=== PATIENT | male | born 1950 | race Caucasian/White ===

== ENCOUNTER → 2017-09-11 10:11 | Outpatient (CLI) | payer OTHER, SELFPAY ==
[2017-09-11 11:16] LABS: BUN Creatinine Ratio 22.9 (6-22); Blood Urea Nitrogen 16 mg/dL (9-20); Calcium 9.7 mg/dL (8.4-10.2); Carbon Dioxide 31 mmol/L (22-32); Chloride 102 mmol/L (98-107); Estimated Glomerular Filt Rate > 60.0 mL/min (>60); Glucose 104 mg/dL (80-110); HEMOLYSIS < 15 (0-50); Potassium 4.9 mmol/L (3.4-5.1); Sodium 142 mmol/L (137-145)
== END ==
PROVIDERS: Visit Provider Specialist
DX: R31.9 Hematuria, unspecified (principal)
CPT/HCPCS: 36415; 80048

== ENCOUNTER → 2017-09-14 09:32 | Outpatient (CLI) | payer OTHER, SELFPAY ==
--- NOTE | 2017-09-14 | DI.CT.S_ITS ---
PROCEDURE: CT ABDOMEN PELVIS WO/W CON INDICATIONS: Hematuria TECHNIQUE: Optional 5 mm thick noncontrast images acquired from the diaphragm to the symphysis pubis. After the administration of intravenous contrast, 5 mm thick images acquired from the diaphragm to the symphysis pubis after a 10-minute delay. 2 mm thick coronal and sagittal reformats were then performed of the kidneys and ureters. For radiation dose reduction, the following was used: automated exposure control, adjustment of mA and/or kV according to patient size. COMPARISON: [facility] [place] , CT, ABD/PELVIS W&WO CON (PN), 02/28/2010, 11:35. FINDINGS: Image quality: Excellent. Lung bases: Lung bases are clear except for pleural thickening along the inferior right major fissure.. Heart size is normal. Urinary system: Both kidneys are normal in size, without hydronephrosis or nephrolithiasis on pre-contrast images. Mild perinephric fat stranding. There is normal bilateral renal enhancement. Renal calyces appear normal in morphology when filled with contrast. A 2.5 cm left peripelvic cyst is reidentified. Opacified portions of both ureters demonstrate normal caliber. Bladder wall appears irregular over the left posterolateral dome on axial series 3/image 183, suggestive on sagittal series 5/image 42. No calcified bladder stones. Other solid organs: Liver is normal in size and enhancement. Gallbladder appears normal. Biliary system is non dilated. Pancreas enhances normally. Spleen is normal in size and enhancement. Small splenule. No adrenal nodules. Peritoneum and bowel: Bowel loops demonstrate normal wall thickness and caliber. Normal appendix. Sigmoid diverticulosis without diverticulitis. No free fluid or air. Nodes and vessels: No retroperitoneal or mesenteric adenopathy by size criteria. Aorta and inferior vena cava are normal in size. Abdominal wall: No ventral hernias. Pelvis: No pathologic free pelvic fluid. Fat filled inguinal hernias, no adenopathy. Prostate is enlarged measuring 4.7 x 5.7 cm. Bones: No suspicious bony lesions. No vertebral body compression fractures. IMPRESSION: 1. No nephrolithiasis or hydronephrosis. Left peripelvic cyst unchanged. 2. There is suggestion of focal urinary bladder wall irregularity over the left dome. This may be artifactual secondary to incomplete distention of the bladder, benign secondary to thickening and cellule formation from outlet obstruction related to the enlarged prostate, but could represent early bladder carcinoma. Evaluation by cystoscopy suggested. 3. Prostate enlargement appears stable in size and likely represents benign hypertrophy but prostate cancer cannot be excluded radiographically. 4. Bilateral fat filled inguinal hernias left larger than right. 5. Sigmoid diverticulosis without diverticulitis. Dictated by: Cody Gauthier M.D. on 09/14/2017 at 12:54 Approved by: Cody Gauthier M.D. on 09/14/2017 at 13:23
== END ==
PROVIDERS: Visit Provider Specialist
DX: R31.9 Hematuria, unspecified (principal); N32.9 Bladder disorder, unspecified; N40.0 Benign prostatic hyperplasia without lower urinary tract symptoms; K40.20 Bilateral inguinal hernia, without obstruction or gangrene, not specified as recurrent; K57.90 Diverticulosis of intestine, part unspecified, without perforation or abscess without bleeding
CPT/HCPCS: 74178; Q9967

== ENCOUNTER 2020-06-06 20:14 | Emergency (ER) | payer MEDICARE, SELFPAY ==
[2020-06-06 20:25] VITALS: BP 129/61; PULSE 52; RESP 22; TEMP 36.6; O2SAT 95
--- NOTE | 2020-06-06 20:30 | DI.RAD.S_ITS ---
PROCEDURE: XR CHEST 1V INDICATIONS: chest pain TECHNIQUE: One view of the chest was acquired. COMPARISON: None. FINDINGS: Surgical changes and devices: None. Lungs and pleura: Lungs are clear. No pleural effusions or pneumothorax. Mediastinum: Mediastinal contours appear normal. Heart size is normal. Bones and chest wall: No suspicious bony lesions. Overlying soft tissues appear unremarkable. IMPRESSION: No evidence acute pulmonary process. Dictated by: Ted Padron M.D. on 06/06/2020 at 21:56 Approved by: Ted Padron M.D. on 06/06/2020 at 21:56
[2020-06-06 21:04] LABS: Add Manual Diff / Slide Review NO; Basophils Absolute Auto 100 /uL (0-100); Basophils Percent Auto 0.8 % (0-2); Eosinophils Absolute Auto 300 /uL (0-450); Hematocrit 45.7 % (41-53); Hemoglobin 15.4 g/dL (13.5-17.5); Lymphocytes Absolute Auto 1500 /uL (1100-4500); Lymphocytes Percent Auto 17.1 % (25-40); Mean Corpuscular HGB Conc 33.7 % (30-36); Mean Corpuscular Hemoglobin 28.9 PG (26-34); Mean Corpuscular Volume 85.9 fL (80-100); Monocytes Absolute Auto 800 /uL (0-900); Monocytes Percent Auto 8.4 % (3-14); Neutrophils Absolute Auto 6400 /uL (1500-7000); Neutrophils Percent Auto 70.7 % (50-75); Platelet Count 247 X10^3/uL (150-400); Prothrombin Time 11.4 SECONDS (10.1-12.7); Red Blood Cell Count 5.32 X10^6/uL (4.5-5.9); Red Cell Distribution Width 13.4 % (11.6-14.8)
[2020-06-06 21:06] LABS: PTT Partial Thromboplastin Tim 35 SECONDS (26.4-36.2)
[2020-06-06 21:07] LABS: Alanine Aminotransferase 20 IU/L (<50); Albumin 4.3 g/dL (3.5-5.0); Albumin Globulin Ratio 1.8 (1.0-2.8); Alkaline Phosphatase 74 U/L (38-126); Aspartate Aminotransferase 22 IU/L (17-59); BUN Creatinine Ratio 28.4 (6-22); Bilirubin Total 0.4 mg/dL (0.2-1.3); Blood Urea Nitrogen 25 mg/dL (9-20); Calcium 9.5 mg/dL (8.4-10.2); Carbon Dioxide 33 mmol/L (22-32); Chloride 103 mmol/L (98-107); Creatine Kinase 59 U/L (55-170); Estimated Glomerular Filt Rate > 60.0 mL/min (>60); Globulin 2.4 g/dL (1.7-4.1); Glucose 137 mg/dL (80-110); HEMOLYSIS 19 (0-50); Lipase 71 U/L (23-300); Potassium 4.3 mmol/L (3.4-5.1); Sodium 141 mmol/L (137-145); Total Protein 6.7 g/dL (6.3-8.2)
[2020-06-06 21:18] LABS: Troponin I < 0.012 ng/mL (0.01-0.034)
--- NOTE | 2020-06-06 22:50 | ED_ITS ---
HPI - Arrhythmia/Palpitations General Chief Complaint: Arrhythmia/Palpitations Stated Complaint: LIGHTHEADED, LOW BLOOD PRESSURE Time Seen by Provider: 06/06/20 20:18 Source: patient Mode of arrival: Ambulatory Limitations: no limitations History of Present Illness HPI narrative: 70-year-old male nonsmoker with history of hypertension and hyperlipidemia presents with significant other and a chief complaint of some lightheadedness earlier today and noted blood pressure that he reports was quite low. He had a recent blood pressure medication change at the request of his primary care provider earlier today. He is currently asymptomatic. He states that he had become lightheaded earlier today and became increasingly lightheaded when standing and noticed improvement when sitting. He denies any chest pain, chest pressure, shortness of breath, palpitations. He states that he has been active recently and denies the provocation of any symptoms. He denies nausea, vomiting or diarrhea. He has had no fever chills. Onset (ago): hour(s) Duration: now resolved Severity: mild Associated symptoms: near-syncope Review of Systems Constitutional Constitutional: Denies chills, Denies fatigue, Denies fever(s), Denies frequent falls, Denies lethargy and Denies weakness Eyes Eyes: Denies change in vision, Denies eye discharge, Denies irritation and Venkatesh es loss of vision ENT Ears, Nose, Mouth, and Throat: Denies change in voice, Denies dizziness, Denies neck pain, Denies sore throat and Denies throat swelling Cardiovascular Cardiovascular: Denies chest pain, Denies irregular heart rhythm, Reports lightheadedness, Denies palpitations, Denies dyspnea, Denies dyspnea on exertion and Denies orthopnea Respiratory Respiratory: Denies cough, Denies dyspnea, Denies dyspnea on exertion and Denies wheezing Gastrointestinal Gastrointestinal: Denies abdominal pain, Denies change in bowel habits, Denies diarrhea, Denies nausea and Denies vomiting Musculoskeletal Musculoskeletal: Denies neck pain and Denies numbness Integumentary/Breasts Skin/Breast: Denies pruritus, Denies erythema, Denies rash and Denies wounds Neurologic Neurologic: Denies behavioral changes, Denies confusion, Denies dizziness, Denies frequent falls, Denies loss of vision, Denies numbness and Denies weakness Psychiatric Psychiatric: Denies anxiety, Denies behavioral changes, Denies confusion, Denies depression, Denies homicidal ideation and Denies suicidal ideation Endocrine Endocrine: Denies fatigue, Denies flushing and Denies palpitations Hematologic/Lymphatic Hematologic/Lymphatic: Denies easy bruising Allergic/Immunologic Allergic/Immunologic: Denies urticaria, Denies throat swelling and Denies wheezing Patient History Social History Smoking Status: Never smoker Smoking Status: Never smoker alcohol intake frequency: other Exam Narrative Exam Narrative: GENERAL: [70] year old patient appears stated age. Well- nourished, well-developed patient, in mild distress. HEAD: Atraumatic. Normocephalic. EYES: Pupils equal round and reactive. Extraocular motions intact. No scleral icterus. No injection or drainage. ENT: Nose without bleeding, purulent drainage. Throat without erythema, tonsillar hypertrophy or exudate. Airway patent. NECK: Trachea midline. Non tender CARDIOVASCULAR: Regular rate and rhythm without murmurs, gallops, or rubs. RESPIRATORY: Clear to auscultation. Breath sounds equal bilaterally. No wheezes, rales, or rhonchi. GASTROINTESTINAL: Abdomen soft, non-tender, nondistended. EXTREMITIES: No edema or joint tenderness. BACK: Nontender without deformity or crepitance. No flank tenderness. NEURO: AOx3. SKIN: No rash or erythema of visible areas Initial Vital Signs Initial Vital Signs: Vital Signs Temperature 97.8 F 06/06/20 20:25 Pulse Rate 52 L 06/06/20 20:25 Respiratory Rate 22 06/06/20 20:25 Blood Pressure 129/61 06/06/20 20:25 Pulse Oximetry 95 06/06/20 20:25 Course Orders Ordered: ED Orders 06/06/20 20:30 XR chest 1V Stat EKG-12 Lead Stat 06/06/20 20:35 Complete Blood Count AUTO DIFF Stat Comprehensive Metabolic Panel Stat Lipase Stat Partial Thromboplastin Time Stat Prothrombin Time INR Stat Troponin & CK Cardiac Panel Stat 06/06/20 23:02 EKG-12 Lead Stat 06/06/20 23:05 Troponin I Stat Vital Signs Vital signs: Vital Signs - 8 hr 06/06/20 20:25 06/07/20 00:48 Temperature 97.8 F Pulse Rate 52 L Pulse Rate [Orthostatic Lying] 49 L Pulse Rate [Orthostatic Sitting] 46 L Pulse Rate [Orthostatic Standing] 46 L Respiratory Rate 22 Blood Pressure 129/61 Blood Pressure [Orthostatic Lying] 138/69 Blood Pressure [Orthostatic Sitting] 136/71 Blood Pressure [Orthostatic Standing] 120/63 Pulse Oximetry 95 MDM - Arrhythmia/Palpitations Lab Data Result diagrams: 06/06/20 20:35 06/06/20 20:35 Labs: Lab Results 06/06/20 06/06/20 06/06/20 Range/Units 20:35 20:35 20:35 WBC 9.0 (4.5-11.0) X10^3/uL RBC 5.32 (4.5-5.9) X10^6/uL Hgb 15.4 (13.5-17.5) g/dL Hct 45.7 (41-53) % MCV 85.9 (80-100) fL MCH 28.9 (26-34) PG MCHC 33.7 (30-36) % RDW 13.4 (11.6-14.8) % Plt Count 247 (150-400) X10^3/uL Neut % (Auto) 70.7 (50-75) % Lymph % (Auto) 17.1 L (25-40) % [place] % (Auto) 8.4 (3-14) % Eos % (Auto) 3.0 (2-4) % Baso % (Auto) 0.8 (0-2) % Neut # (Auto) 6400 (4944-3818) /uL Lymph # (Auto) 1500 (6583-4944) /uL [place] # (Auto) 800 (0-900) /uL Eos # (Auto) 300 (0-450) /uL Baso # (Auto) 100 (0-100) /uL PT 11.4 (10.1-12.7) SECONDS INR 1.0 (0.9-1.3) APTT 35 (26.4-36.2) SECONDS Sodium 141 (137-145) mmol/L Potassium 4.3 (3.4-5.1) mmol/L Chloride 103 (98-107) mmol/L Carbon Dioxide 33 H (22-32) mmol/L BUN 25 H (9-20) mg/dL Creatinine 0.88 (0.66-1.25) mg/dL Estimated GFR > 60.0 (>60) mL/min BUN/Creatinine Ratio 28.4 H (6-22) Glucose 137 H (80-110) mg/dL Calcium 9.5 (8.4-10.2) mg/dL Total Bilirubin 0.4 (0.2-1.3) mg/dL AST 22 (17-59) IU/L ALT 20 (<50) IU/L Alkaline Phosphatase 74 (38-126) U/L Total Creatine Kinase 59 (55-170) U/L CK-MB (CK-2) TNP CK-MB (CK-2) Rel Index TNP Troponin I < 0.012 (0.01-0.034) ng/mL Total Protein 6.7 (6.3-8.2) g/dL Albumin 4.3 (3.5-5.0) g/dL Globulin 2.4 (1.7-4.1) g/dL Albumin/Globulin Ratio 1.8 (1.0-2.8) Lipase 71 (23-300) U/L 06/06/20 Range/Units 23:05 WBC (4.5-11.0) X10^3/uL RBC (4.5-5.9) X10^6/uL Hgb (13.5-17.5) g/dL Hct (41-53) % MCV (80-100) fL MCH (26-34) PG MCHC (30-36) % RDW (11.6-14.8) % Plt Count (150-400) X10^3/uL Neut % (Auto) (50-75) % Lymph % (Auto) (25-40) % [place] % (Auto) (3-14) % Eos % (Auto) (2-4) % Baso % (Auto) (0-2) % Neut # (Auto) (2811-4587) /uL Lymph # (Auto) (9368-9023) /uL [place] # (Auto) (0-900) /uL Eos # (Auto) (0-450) /uL Baso # (Auto) (0-100) /uL PT (10.1-12.7) SECONDS INR (0.9-1.3) APTT (26.4-36.2) SECONDS Sodium (137-145) mmol/L Potassium (3.4-5.1) mmol/L Chloride (98-107) mmol/L Carbon Dioxide (22-32) mmol/L BUN (9-20) mg/dL Creatinine (0.66-1.25) mg/dL Estimated GFR (>60) mL/min BUN/Creatinine Ratio (6-22) Glucose (80-110) mg/dL Calcium (8.4-10.2) mg/dL Total Bilirubin (0.2-1.3) mg/dL AST (17-59) IU/L ALT (<50) IU/L Alkaline Phosphatase (38-126) U/L Total Creatine Kinase (55-170) U/L CK-MB (CK-2) CK-MB (CK-2) Rel Index Troponin I < 0.012 (0.01-0.034) ng/mL Total Protein (6.3-8.2) g/dL Albumin (3.5-5.0) g/dL Globulin (1.7-4.1) g/dL Albumin/Globulin Ratio (1.0-2.8) Lipase (23-300) U/L Imaging Data Chest x-ray: Radiologist's Impresson: Doug Dixon Luh M 1950 [address] [id number] ReportSigned Patient: Simeon Dixony DMR#: [id number]: 9Acct:[id number]/Sex: 70 / MDate of Service: 06/06/20Loc: EDAccession Number: [id number] Procedure: XR chest 1V Ordering Provider: Facundo Angel D.O. PROCEDURE: XR CHEST 1V INDICATIONS: chest pain TECHNIQUE: One view of the chest was acquired. COMPARISON: None. FINDINGS: Surgical changes and devices: None. Lungs and pleura: Lungs are clear. No pleural effusions or pneumothorax. Mediastinum: Mediastinal contours appear normal. Heart size is normal. Bones and chest wall: No suspicious bony lesions. Overlying soft tissues appear unremarkable. IMPRESSION: No evidence acute pulmonary process. Dictated by: Ted Padron M.D. on 06/06/2020 at 21:56 Approved by: Ted Padron M.D. on 06/06/2020 at 21:56 [facility] Narrative Medical decision making narrative: Patient feeling quite well, orthostatics are unremarkable and he ambulates to the department with no difficulty. Blood pressure is stable and he is asymptomatic, centrally for the duration of his visit. He has negative troponins x2, nonischemic EKG and very reassuring exam and labs. It is hard to ignore the temporal relationship between this significant drop in blood pressure at home and the change in his blood pressure medication. I did encourage him to return to his previous medication regimen until he is able to get in with his doctor, for the plan. Return precautions have been given, questions answered to his apparent satisfaction Discharge Plan Departure Patient Disposition: Home Clinical Impression: Acute hypotension, Light-headedness Instructions: DI for Hypotension Activity Restrictions/Additional Instructions: *You have been diagnosed with [dizziness with episodes of low blood pressure, likely related to your medications.] *What to do: *Take medications as directed: Please return to your older blood pressure medication regimen until you follow up with your doctor *Follow up with your primary care provider in 2-3 days, call for an appointment. Let them know you were seen in the Emergency Department and that we ask that you be seen in follow up *Return to ER if you should have any new, worsening or concerning symptoms
[2020-06-06 23:36] LABS: Troponin I < 0.012 ng/mL (0.01-0.034)
[2020-06-07 00:48] VITALS: BP 120/63; BP 136/71; BP 138/69; PULSE 46; PULSE 49
== END 2020-06-07 00:51 | disposition home or self-care (01) ==
PROVIDERS: Emergency Provider Emergency Medicine
DX: I95.9 Hypotension, unspecified (principal); R42 Dizziness and giddiness
CPT/HCPCS: 36415; 71045; 80053; 82550; 83690; 84484; 85025; 85610; 85730; 93005; 99283

== ENCOUNTER → 2020-10-22 10:44 | Outpatient (CLI) | payer MEDICARE, SELFPAY ==
[2020-10-22 13:46] LABS: Thyroid Stimulating Hormone 2.99 uIU/mL (0.47-4.68)
== END ==
PROVIDERS: PCP Family Medicine; Referring Provider Internal Medicine Cardiovascular Disease; Visit Provider Internal Medicine Cardiovascular Disease
DX: I10 Essential (primary) hypertension (principal)
CPT/HCPCS: 36415; 83735; 84443

== ENCOUNTER → 2020-11-05 08:53 | Outpatient (CLI) | payer MEDICARE, SELFPAY ==
--- NOTE | 2020-11-05 08:56 | DI.US.S_ITS ---
PROCEDURE: US ABDOMEN LIMITED INDICATIONS: LEFT INGUINAL PAIN, LUMP TECHNIQUE: Real-time focused scanning was performed of the inguinal region, with image documentation. COMPARISON: None. FINDINGS: Two areas of concern were evaluated. Midline supraumbilical region demonstrates no hernia or visible abdominal wall defect. Left inguinal region demonstrates no hernia at rest or with Valsalva maneuver. IMPRESSION: 1. No sonographic evidence of midline or left inguinal hernia. If there is continued concern, CT of the abdomen and pelvis with Valsalva maneuver is recommended. Dictated by: Melanie Ornelas M.D. on 11/05/2020 at 11:18 Approved by: Melanie Ornelas M.D. on 11/05/2020 at 11:19
== END ==
PROVIDERS: PCP Family Medicine; Referring Provider Specialist; Visit Provider Specialist
DX: R10.30 Lower abdominal pain, unspecified (principal); R19.04 Left lower quadrant abdominal swelling, mass and lump
CPT/HCPCS: 76705

== ENCOUNTER → 2020-11-26 08:56 | Outpatient (CLI) | payer MEDICARE, SELFPAY ==
--- NOTE | 2020-11-26 08:58 | DI.CT.S_ITS ---
PROCEDURE: CT PEL WO CON INDICATIONS: benigh prostatic hyperplasia with lower urinary tract symptoms TECHNIQUE: Noncontrast 3 mm axial sections acquired through the bony pelvis, with coronal and sagittal reformatting. COMPARISON: CT, CT ABDOMEN PELVIS WO/W CON, 09/14/2017, 9:49. FINDINGS: Image quality: Excellent. Bones: No fracture or dislocation. No suspicious osseous lesion. Moderate degenerative change in the lower lumbar spine. Soft tissues: Diverticulosis. No diverticulitis. The appendix is not dilated. No free fluid. Mild calcified atherosclerotic plaque. Fat containing left inguinal hernia. Possible fat containing right inguinal hernia. No adenopathy. Prostatomegaly. The prostate measures approximately 6.8 x 4.8 x 4.7 cm, estimated volume of 80 cc. There is median lobe hypertrophy. Urinary bladder is only partially distended. No bladder stones or obvious bladder diverticulum. Bilateral hydroceles. IMPRESSION: 1. Prostatomegaly. 2. No bladder stones. 3. Diverticulosis. Additional incidental findings: Bilateral hydroceles. Suspect fat containing inguinal hernias. Dictated by: Gene Marroquin M.D. on 11/26/2020 at 9:39 Approved by: Gene Marroquin M.D. on 11/26/2020 at 9:46
== END ==
PROVIDERS: PCP Family Medicine; Referring Provider Specialist; Visit Provider Specialist
DX: N40.1 Benign prostatic hyperplasia with lower urinary tract symptoms (principal); N13.8 Other obstructive and reflux uropathy; K57.90 Diverticulosis of intestine, part unspecified, without perforation or abscess without bleeding
CPT/HCPCS: 72192

== ENCOUNTER → 2020-12-21 09:32 | Outpatient (ROUT) | payer MEDICARE, SELFPAY ==
[2020-12-21 09:50] LABS: COVID19 -Nasal RAPID Negative (Negative)
== END ==
PROVIDERS: PCP Family Medicine; Visit Provider Specialist
DX: Z20.822 Contact with and (suspected) exposure to COVID-19 (principal)
CPT/HCPCS: 87635; C9803

== ENCOUNTER 2020-12-24 07:57 | Day surgery (SDC) | payer MEDICARE, SELFPAY ==
[2020-12-21 08:11] VITALS: BMI 28.0
[2020-12-24] VITALS (9 sets, daily range): BP systolic 112–153; BP diastolic 68–81; PULSE 62–84; RESP 9–24; TEMP 36–36.6; O2SAT 90–99; BMI 28.0
[2020-12-24] MEDS: LACTATED RINGERS 1,000 ML 42 ML IV (08:26)
--- NOTE | 2020-12-24 08:46 | PM.PREOP ---
Pre-operative Note Interval Note History & Physical reviewed/Exam performed by Physician: Yes Changes to H&P: No
[2020-12-24] MEDS: CIPROFLOXACIN 400 MG/200 ML PIGGYBACK 200 MG IV (09:00)
--- NOTE | 2020-12-24 09:27 | SUR.OPER ---
Supine on padded OR bed, head on pillow, arms secured on padded arm boards at <90 degrees abduction, legs uncrossed, safety belt at thigh, tape over blanket over lower legs.
[2020-12-24] MEDS: BUPIVACAINE 0.25% (PF) VIAL 30 ML INJ (09:34)
[2020-12-24] MEDS: BUPIVACAINE LIPOSOME 266 MG/20 ML VIAL INJ (09:34)
[2020-12-24] MEDS: EPINEPHrine 1 MG/ML 0.15 MG INJ (09:35)
[2020-12-24] MEDS: ACETAMINOPHEN IV 1,000 MG/100 ML VIAL 400 MG IV (10:23)
--- NOTE | 2020-12-24 10:52 | SUR.PHASEI ---
Patient to PACU via stretcher with Dr Rodriguez and Amara AKHTAR after general anesthesia. Pt breathing unassisted on room air.
--- NOTE | 2020-12-24 10:55 | P.OP_ITS ---
Operative Date/Time/Diagnoses Date of procedure: 12/24/20 Time of procedure: 10:55 Pre-op diagnosis: 1. Left inguinal hernia Post-op diagnosis: same Procedure & Clinicians Procedure: 1. Left inguinal hernia repair with mesh. Same procedure as scheduled: Yes Indications: 1. Symptomatic left inguinal hernia. Surgeon: Zuri Madison Click Yes if Unassisted: Yes Anesthesia Type: General and Local (1.33% Exparel) Operative Notes Findings: 1. 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 2. Small hernia sac identified at internal ring. 3. Separation of abdominal wall at internal ring. Closure Type: primary Specimen(s): none sent Prosthetic devices, grafts, tissues, transplants, or devices: 3 in x 6 in polypropylene Bard mesh pre Estimated Blood Loss (mL): 5 Blood products transfused: none Tourniquet time (min): 0 Procedure in detail: The patient was positioned supine administered general anesthesia. The lower abdomen, genitalia, and groin were then prepped and draped in sterile fashion. A solution of 0.5% Marcaine with epinephrine then used to infiltrate the skin and subcutaneous tissue of the left inguinal canal. An oblique incision was then made at this site. Division of the subcutaneous fat and Nicole's fascia was then conducted using blunt cautery dissection. The rectus sheath was then divided parallel to its fibers over the canal. The cord associated structures were then carefully mobilized from within the canal and reflected superiorly into the surface the incision. Inspection revealed a a large and length the spermatic cord lipoma. This was from the spermatic cord structures using meticulous blunt and cautery technique. The structure was then reflected laterally and superiorly alternating with medially and inferiorly at the internal ring to identify the anatomic boundaries. Once fully mobilized it was simply repositioned within the preperitoneal space of the abdominal/pelvic cavity. The small hernia sac receded after mobilization of the structures as described above. There was no bowel located within the sac. A repair of the internal ring was then conducted using interrupted [id number] 2-0 PDS. A 3 x 6 in polypropylene segment of mesh was then selected. It was then tailored and shape to position over the transverse a was an oblique layers. Lateral crossing tails were then created. An adequate aperture was created by excision and also stellate incisions and the mesh at the internal ring. The mesh was secured in place several places including the pubic tubercle with 3-0 Prolene suture. The cord was then repositioned in the left inguinal canal. Rectus fascia was then closed using a running 2-0 PDS. Nicole's fascia was reapproximated using the same suture. Each layer was infiltrated with Exparel. The skin was then reapproximated using a running subcuticular 4-0 Monocryl. Telfa gauze was then tailored to cover the skin incision. Over this a transparent Tegaderm dressing was applied for by occlusion. The patient was then awakened, transferred to [facility], and transferred to recovery in stable condition. Complications: none Post-operative Condition: stable Disposition: PACU Plan for aftercare: Discharge home
--- NOTE | 2020-12-24 11:09 | SUR.PHASEI ---
Patient reports some numbness to left foot. Informed Dr Madison who is at bedside, foot with 5/5 dorsal and plantar flexion.
== END 2020-12-24 11:43 | disposition home or self-care (01) ==
PROVIDERS: PCP Family Medicine; Referring Provider Specialist; Visit Provider Specialist
PROC: (CPT 49505; principal; 2020-12-24 09:15)
DX: K40.90 Unilateral inguinal hernia, without obstruction or gangrene, not specified as recurrent (principal); I10 Essential (primary) hypertension; D17.6 Benign lipomatous neoplasm of spermatic cord
CPT/HCPCS: 49505; 82962; C1781; C9290; J0131; J0171; J0744; J1100; J2405; J2704; J3010

== ENCOUNTER → 2021-04-24 10:18 | Outpatient (CLI) | payer MEDICARE, SELFPAY ==
[2021-04-24 12:16] LABS: Cholesterol 140 mg/dL (140-199); HDL Cholesterol 41 mg/dL (40-60); LDL Cholesterol Calculated 86 mg/dL (<100); Triglycerides 67 mg/dL (35-150)
== END ==
PROVIDERS: PCP Family Medicine; Referring Provider Internal Medicine Cardiovascular Disease; Visit Provider Internal Medicine Cardiovascular Disease
DX: E78.5 Hyperlipidemia, unspecified (principal)
CPT/HCPCS: 36415; 80061

== ENCOUNTER → 2021-07-15 11:50 | Outpatient (CLI) | payer MEDICARE, SELFPAY ==
[2021-07-15 12:56] LABS: Cholesterol 133 mg/dL (140-199); HDL Cholesterol 44 mg/dL (40-60); LDL Cholesterol Calculated 76 mg/dL (<100); Triglycerides 65 mg/dL (35-150)
== END ==
PROVIDERS: PCP Family Medicine; Referring Provider Internal Medicine Cardiovascular Disease; Visit Provider Internal Medicine Cardiovascular Disease
DX: E78.5 Hyperlipidemia, unspecified (principal)
CPT/HCPCS: 36415; 80061

== ENCOUNTER → 2021-11-19 13:59 | Outpatient (CLI) | payer MEDICARE, SELFPAY ==
[2021-11-19 16:53] LABS: Alanine Aminotransferase 20 IU/L (<50); Albumin 4.4 g/dL (3.5-5.0); Albumin Globulin Ratio 1.6 (1.0-2.8); Alkaline Phosphatase 67 U/L (38-126); Aspartate Aminotransferase 20 IU/L (17-59); BUN Creatinine Ratio 25.6 (6-22); Bilirubin Total 0.9 mg/dL (0.2-1.3); Blood Urea Nitrogen 20 mg/dL (9-20); Calcium 9.3 mg/dL (8.4-10.2); Carbon Dioxide 29 mmol/L (22-32); Chloride 100 mmol/L (98-107); Cholesterol 127 mg/dL (140-199); Estimated Glomerular Filt Rate > 60 mL/min (>60); Globulin 2.7 g/dL (1.7-4.1); Glucose 117 mg/dL (80-110); HDL Cholesterol 38 mg/dL (40-60); HEMOLYSIS < 15 (0-50); LDL Cholesterol Calculated 78 mg/dL (<100); Sodium 141 mmol/L (137-145); Total Protein 7.1 g/dL (6.3-8.2); Triglycerides 57 mg/dL (35-150)
== END ==
PROVIDERS: PCP Family Medicine; Referring Provider Internal Medicine Cardiovascular Disease; Visit Provider Internal Medicine Cardiovascular Disease
DX: E78.5 Hyperlipidemia, unspecified (principal)
CPT/HCPCS: 36415; 80053; 80061

== ENCOUNTER → 2022-01-22 11:29 | Outpatient (CLI) | payer MEDICARE, SELFPAY ==
[2022-01-22 12:37] LABS: Cholesterol 120 mg/dL (140-199); HDL Cholesterol 42 mg/dL (40-60); LDL Cholesterol Calculated 68 mg/dL (<100); Triglycerides 50 mg/dL (35-150)
== END ==
PROVIDERS: PCP Family Medicine; Referring Provider Internal Medicine Cardiovascular Disease; Visit Provider Internal Medicine Cardiovascular Disease
DX: E78.5 Hyperlipidemia, unspecified (principal)
CPT/HCPCS: 36415; 80061

== ENCOUNTER → 2022-02-17 12:12 | Outpatient (CLI) | payer MEDICARE, SELFPAY ==
[2022-02-17 13:56] LABS: Prostate Specific Antigen 4.65 ng/mL (0.10-4.00)
== END ==
PROVIDERS: PCP Family Medicine; Referring Provider Specialist; Visit Provider Specialist
DX: N40.1 Benign prostatic hyperplasia with lower urinary tract symptoms (principal); N13.8 Other obstructive and reflux uropathy
CPT/HCPCS: 36415; 84153

== ENCOUNTER → 2022-03-12 13:40 | Outpatient (CLI) | payer MEDICARE, SELFPAY ==
[2022-03-12 15:47] LABS: Prostate Specific Antigen 4.04 ng/mL (0.10-4.00)
[2022-03-13 14:04] LABS: PSA Free % 27.1 % (.); PSA, Total 4.2 ng/mL (0.0-4.0)
== END ==
PROVIDERS: PCP Family Medicine; Referring Provider Specialist; Visit Provider Specialist
DX: R97.20 Elevated prostate specific antigen [PSA] (principal); N40.1 Benign prostatic hyperplasia with lower urinary tract symptoms; N13.8 Other obstructive and reflux uropathy
CPT/HCPCS: 36415; 84153; 84154

== ENCOUNTER → 2022-10-10 11:57 | Outpatient (CLI) | payer MEDICARE, SELFPAY ==
--- NOTE | 2022-10-10 11:58 | DI.RAD.S_ITS ---
PROCEDURE: XR KUB INDICATIONS: history of urinary calculi TECHNIQUE: One view of the abdomen acquired. COMPARISON: None. FINDINGS: Surgical changes and devices: None. Bowel: Bowel gas pattern is normal. Soft tissues: No suspicious abdominal calcifications. Visualized solid organ contours appear normal in size. Bones: No suspicious bony lesions. IMPRESSION: No gross renal calculi are seen. No bowel obstruction or gross free air. Dictated by: Eugenio Connolly M.D. on 10/10/2022 at 16:02 Approved by: Eugenio Connolly M.D. on 10/10/2022 at 16:03
[2022-10-10 13:53] LABS: Prostate Specific Antigen 4.85 ng/mL (0.10-4.00)
== END ==
PROVIDERS: PCP Family Medicine; Referring Provider Specialist; Visit Provider Specialist
DX: R97.20 Elevated prostate specific antigen [PSA] (principal); Z87.442 Personal history of urinary calculi
CPT/HCPCS: 36415; 74018; 84153

== ENCOUNTER → 2023-02-05 12:19 | Outpatient (CLI) | payer MEDICARE, SELFPAY ==
[2023-02-05 14:26] LABS: Prostate Specific Antigen 4.27 ng/mL (0.10-4.00)
== END ==
PROVIDERS: PCP Family Medicine; Referring Provider Specialist; Visit Provider Specialist
DX: R97.20 Elevated prostate specific antigen [PSA] (principal)
CPT/HCPCS: 36415; 84153

== ENCOUNTER → 2023-02-18 14:28 | Outpatient (CLI) | payer MEDICARE, SELFPAY | PROVIDERS: PCP Family Medicine; Visit Provider Specialist | DX: N40.1 Benign prostatic hyperplasia with lower urinary tract symptoms (principal); N13.8 Other obstructive and reflux uropathy; Z87.442 Personal history of urinary calculi; Z80.42 Family history of malignant neoplasm of prostate | CPT/HCPCS: 51798; 81002; 87077; 87086; 87186; 99214 ==

== ENCOUNTER → 2023-06-16 08:53 | Outpatient (CLI) | payer MEDICARE, SELFPAY ==
[2023-06-16 09:40] LABS: Estimated Glomerular Filt Rate > 60 mL/min (>60)
--- NOTE | 2023-06-16 09:43 | DI.CT.S_ITS ---
PROCEDURE: CT IVP A/P W/WO INDICATIONS: Gross Hematuria BPH TECHNIQUE: Optional 5 mm thick noncontrast images acquired from the diaphragm to the symphysis pubis. After the administration of intravenous contrast, 5 mm thick images acquired from the diaphragm to the symphysis pubis after a 10-minute delay. 2 mm thick coronal and sagittal reformats were then performed of the kidneys and ureters. For radiation dose reduction, the following was used: automated exposure control, adjustment of mA and/or kV according to patient size. COMPARISON: None. FINDINGS: Image quality: Diagnostic. Kidneys and Ureters: Both kidneys are normal in size without hydronephrosis. There are bilateral parapelvic cysts. Linear calcific debris/stones measuring 0.7 x 0.4 cm in the right interpolar region (2/46, 3/34). No perinephric fat stranding. There is normal bilateral renal enhancement. Bilateral subcentimeter cortical hypodensities are too small to characterize, statistically cysts. No complex cystic lesions which require follow-up. Renal calyces appear normal in morphology when filled with contrast. Opacified portions of both ureters demonstrate normal caliber Bladder: Bladder wall thickness is mildly thickened, accounting for underdistention. Calcified bladder stone at the right base of the bladder measuring 0.9 x 0.7 cm with Hounsfield unit 538 (2/81). OTHER: Lower chest: Marked LAD and left circumflex coronary vessel calcifications. Heart size is mildly enlarged. Liver: No solid mass. Subcentimeter scattered hypodensities are too small to characterize. Gallbladder: No radiopaque gallstones or wall thickening. Biliary ducts: No biliary dilation. Pancreas: No ductal dilation. Spleen: Size is within normal limits. Adrenal Glands: No adrenal nodules. Stomach and Bowel no hiatal hernia. Stomach appears grossly normal accounting for under distention. Small and large bowel is normal in caliber, without obstruction. Normal appendix (4/150). Extensive sigmoid and scattered colonic diverticulosis, without diverticulitis. Peritoneum: No abnormal intraperitoneal fluid. No free air. Ventral Wall: No hernia. Abdominal Nodes: No retroperitoneal or mesenteric adenopathy by size criteria. Vessels: Aorta and inferior vena cava are normal in size. Mild calcification of the abdominal aorta, without aneurysm. PELVIS: Pelvic Organs: Moderate to marked prostatomegaly measuring 5.8 x 5.1 cm. Pelvic Nodes: No enlarged lymph nodes. Miscellaneous: No inguinal hernias are seen. Bones: No aggressive osseous abnormality. No acute fracture. Mild to moderate multilevel degenerative changes of the spine. IMPRESSION: 1. Calcified bladder stone at the right base of the bladder measuring 0.9 x 0.7 cm with Hounsfield unit of 538. 2. Linear right lower pole calcific debris/stone measuring 0.7 x 0.4 cm. 3. No hydronephrosis bilaterally. No suspicious filling defect in the collecting system. 4. Moderate to marked prostatomegaly with circumferential bladder wall thickening suggestive of chronic bladder outlet obstruction. 5. Extensive sigmoid and scattered colonic diverticulosis, without diverticulitis. Dictated by: Arcadio Ziegler M.D. on 06/16/2023 at 16:45 Approved by: Arcadio Ziegler M.D. on 06/16/2023 at 16:57
== END ==
LOC: CT 08:53
PROVIDERS: Radiology Diagnostic Radiology; PCP Family Medicine; Referring Provider Specialist; Visit Provider Specialist
DX: N40.1 Benign prostatic hyperplasia with lower urinary tract symptoms (principal); N13.8 Other obstructive and reflux uropathy; R31.0 Gross hematuria; N21.0 Calculus in bladder; N20.0 Calculus of kidney; N28.1 Cyst of kidney, acquired; R97.20 Elevated prostate specific antigen [PSA]; I25.10 Atherosclerotic heart disease of native coronary artery without angina pectoris; I51.7 Cardiomegaly; K57.30 Diverticulosis of large intestine without perforation or abscess without bleeding; I70.0 Atherosclerosis of aorta
CPT/HCPCS: 36415; 74178; 82565; Q9967

== ENCOUNTER 2023-07-13 08:39 | Day surgery (SDC) | payer MEDICARE, SELFPAY ==
[2023-07-13 07:34] VITALS: BMI 25.7
[2023-07-13 09:15] VITALS: BP 146/70; PULSE 51; RESP 16; TEMP 36.2; O2SAT 97; BMI 25.7
--- NOTE | 2023-07-13 09:33 | PM.PREOP ---
Pre-operative Note Interval Note History & Physical reviewed/Exam performed by Physician: Yes Changes to H&P: No
[2023-07-13] MEDS: CEFAZOLIN 2 GM/100 ML PREMIX 100 ML IV (10:15)
--- NOTE | 2023-07-13 10:20 | SUR.OPER ---
Lithotomy on padded OR bed, head on pillow, arms secured on padded arm boards at <90 degrees abduction. Legs secured in padded yellow fins stirrups.
[2023-07-13 11:00] VITALS: BP 140/73; PULSE 75; RESP 13; TEMP 36.1; O2SAT 94
[2023-07-13 11:05] VITALS: BP 140/70; PULSE 69; RESP 13; O2SAT 95
[2023-07-13 11:09] VITALS: BP 142/76; PULSE 67; RESP 11; O2SAT 96
--- NOTE | 2023-07-13 11:09 | P.OP_ITS ---
Operative Date/Time/Diagnoses Date of procedure: 07/13/23 Time of procedure: 10:45 Pre-op diagnosis: 1. Bladder calculus 2. Gross hematuria Post-op diagnosis: same Procedure & Clinicians Procedure: 1. Laser litholapaxy (500 micron). Same procedure as scheduled: Yes Indications: 1. Bladder calculus. 2. Gross hematuria Surgeon: Zuri Madison Anesthesia Type: General Operative Notes Findings: 1. Urethra-normal stricture or lesion. Evidence recent disrupted and healing synchiciae in the distal bulbar segment. 2. External sphincter-coapted with normal overlying urothelium. 3. Prostate 4.55 cm length with moderately obstructing trilobar hyperplasia. Impressive elevation of the median bar. Numerous benign inflammatory mucosal polyps seen bilaterally in the mid portion of the prostatic urethra. 4. Bladder-normal ureteral orifices bilaterally. The bladder neck is elevated and the floor depressed due to enlarged median bar. The stone lying dependently at the bladder base. Closure Type: not applicable Specimen(s): other (Bladder stone fragments) Applied: catheter (20 [place] silicone catheter to gravity drainage.) Estimated Blood Loss (mL): 2 Blood products transfused: none Procedure in detail: The patient was positioned supine was administered general anesthesia. He was then repositioned semi-lithotomy lower abdomen, genitalia, and groin were then prepped and draped in sterile fashion. The 20 [place] continuous-flow laser en doscope was then passed lower urinary tract with the findings as described above. A 500 micron fiber was then requested and all operating room personnel and patient were fitted with laser safety eyewear. The index calculus as described above was then localized and lithotripsy was then commenced. The stone was sequentially fragmented into tiny pieces. There was excellent evidence of stone comminution. Laser treatment was halted. They elect evacuator was then utilized to irrigate all sand, pumice common fragments from within the bladder lumen. This calculus material was then gathered and submitted to be sent for mineral analysis. The bladder was then left partially filled and the laser cystoscope was removed. A 20 [place] silicone catheter was then advanced lower urinary tract with the tip in the bladder. The balloon inflated 10 cc. And was irrigated clear and then placed to gravity drainage. The patient was then repositioned in supine, was awakened, transferred to [facility] recovery in stable condition. Complications: none Post-operative Condition: stable Disposition: PACU Plan for aftercare: Discharge home.
[2023-07-13] MEDS: OXYCODONE IR 5 MG TABLET PO (11:12)
[2023-07-13 11:14] VITALS: BP 145/72; PULSE 64; RESP 13; O2SAT 96
[2023-07-13 11:21] VITALS: BP 144/71; PULSE 61; RESP 15; TEMP 36.3; O2SAT 95
== END 2023-07-13 12:13 | disposition home or self-care (01) ==
PROVIDERS: PCP Family Medicine; Referring Provider Specialist; Visit Provider Specialist
PROC: 0TCB8ZZ Extirpation of Matter from Bladder, Via Natural or Artificial Opening Endoscopic (ICD-10-PCS; CPT 52317; principal; 2023-07-13 10:15)
DX: N21.0 Calculus in bladder (principal); R31.1 Benign essential microscopic hematuria; N40.1 Benign prostatic hyperplasia with lower urinary tract symptoms; N13.8 Other obstructive and reflux uropathy; R97.20 Elevated prostate specific antigen [PSA]; Z80.42 Family history of malignant neoplasm of prostate
CPT/HCPCS: 52317; 82365; J0330; J0690; J1100; J2405; J2704; J3010

== ENCOUNTER → 2023-08-04 09:54 | Outpatient (CLI) | payer MEDICARE, SELFPAY ==
--- NOTE | 2023-08-04 09:55 | DI.RAD.S_ITS ---
PROCEDURE: XR KUB INDICATIONS: Calculus in bladder TECHNIQUE: One view of the abdomen acquired. COMPARISON: [facility], CT, CT IVP A/P W/WO, 06/16/2023, 9:44. [facility], CR, XR KUB, 10/10/2022, 12:21. FINDINGS: Surgical changes and devices: None. Bowel: Prominent loop of small bowel in the mid abdomen. Soft tissues: No kidney stones identified. The previously seen stone in the urinary bladder is not appreciated. No suspicious abdominal calcifications. Visualized solid organ contours appear normal in size. Bones: No suspicious bony lesions. IMPRESSION: The previously seen stone in the urinary bladder is not appreciated on this exam. No kidney stones identified. Consider CT KUB for further evaluation. Prominent loop of small bowel in the mid abdomen. Dictated by: Gene Marroquin M.D. on 08/04/2023 at 13:34 Approved by: Gene Marroquin M.D. on 08/04/2023 at 13:38
== END ==
PROVIDERS: PCP Family Medicine; Referring Provider Specialist; Visit Provider Specialist
DX: N21.0 Calculus in bladder (principal)
CPT/HCPCS: 74018

== ENCOUNTER → 2023-09-23 07:41 | Outpatient (CLI) | payer MEDICARE, SELFPAY ==
--- NOTE | 2023-09-23 09:00 | DI.CT.S_ITS ---
PROCEDURE: CT KIDNEY URETER BLADDER (KUB) INDICATIONS: Flank pain, bloody urine TECHNIQUE: Axial sections were acquired from the lung bases to the pubic symphysis. Coronal and sagittal reformats were performed. For radiation dose reduction, the following was used: automated exposure control, adjustment of mA and/or kV according to patient size. COMPARISON: [facility], CT, CT IVP A/P W/WO, 06/16/2023, 9:44. [facility], CR, XR KUB, 08/04/2023, 10:06. FINDINGS: Image quality: Diagnostic. Lower Chest: No significant findings. URINARY: Right Kidney: Mild hydronephrosis with a 3 millimeter stone in the lower pole collecting system which may be nonobstructive. A 5 millimeter stone seen in the proximal right ureter with proximal ureterectasis and perinephric stranding. Right Ureter: With above Left Kidney: Peripelvic cysts, similar to prior study on 06/16/2023.. No definite stone seen. Mild perinephric stranding. Left Ureter: No hydroureter. Bladder: Normal wall thickness. A least two 3 millimeter stones seen in the dependent portion of the bladder. ABDOMEN: Liver: No contour-deforming solid mass. Gallbladder: No radiopaque gallstones or wall thickening. Biliary ducts: No biliary dilation. Pancreas: No ductal dilation. Spleen: Size is within normal limits. Splenule noted. Adrenal Glands: No adrenal nodules. Stomach and Bowel: Normal colonic caliber, without significant wall thickening. Severe diverticulosis of the sigmoid, descending and transverse colons. No evidence of acute diverticulitis. Peritoneum: No abnormal intraperitoneal fluid. No free air. Ventral Wall: No hernia. Abdominal Nodes: No enlarged retroperitoneal or mesenteric lymph nodes. Vessels: Aorta and inferior vena cava are normal in size. PELVIS: Pelvic Organs: Unremarkable. Pelvic Nodes: Unremarkable. Miscellaneous: No inguinal hernias are seen. Bones: Osteopenia, degenerative disc disease at L4-L5, L5-S1. IMPRESSION: 1. Mild right hydronephrosis, with a 5 mm stone in the proximal right ureter. Bilateral perinephric stranding. 2. Additional 3 millimeter stones are seen in dependent portion of the bladder. The previously identified 9 millimeter bladder stone is no longer visualized. 3. Diverticulosis without evidence of diverticulitis 4. Degenerative changes of the spine Dictated by: Vito Mancilla M.D. on 09/23/2023 at 12:03 Approved by: Vito Mancilla M.D. on 09/23/2023 at 12:35
== END ==
LOC: CT 07:42
PROVIDERS: PCP Family Medicine; Referring Provider Specialist; Visit Provider Specialist
DX: N13.2 Hydronephrosis with renal and ureteral calculous obstruction (principal); N21.0 Calculus in bladder; R31.9 Hematuria, unspecified; K57.30 Diverticulosis of large intestine without perforation or abscess without bleeding; M51.36 Other intervertebral disc degeneration, lumbar region; M51.37 Other intervertebral disc degeneration, lumbosacral region; M85.80 Other specified disorders of bone density and structure, unspecified site; Z87.448 Personal history of other diseases of urinary system
CPT/HCPCS: 74176

== ENCOUNTER → 2023-09-25 11:03 | Outpatient (CLI) | payer MEDICARE, SELFPAY ==
--- NOTE | 2023-09-25 11:04 | DI.RAD.S_ITS ---
PROCEDURE: XR KUB INDICATIONS: Bladder stone TECHNIQUE: One view of the abdomen acquired. COMPARISON: [facility], CT, CT KIDNEY URETER BLADDER (KUB), 09/23/2023, 7:46. [facility], CR, XR KUB, 08/04/2023, 10:06. [facility], CR, XR KUB, 10/10/2022, 12:21. FINDINGS: Surgical changes and devices: None. Bowel: Bowel gas pattern is normal. Soft tissues: Previously seen renal and bladder calculi are not well visualized. Visualized solid organ contours appear normal in size. Bones: No suspicious bony lesions. Mild levoconvex curvature of the spine and multilevel degenerative changes. IMPRESSION: Previously seen renal and bladder calculi are not definitely visualized. Approved by: Davide Thomas M.D. on 09/25/2023 at 16:47
[2023-09-25 12:50] LABS: Calcium 9.4 mg/dL (8.4-10.2); Uric Acid 3.4 mg/dL (3.5-8.5)
[2023-09-28 11:11] LABS: PSA Free % 27.1 % (.); PSA, Total 4.9 ng/mL (0.0-4.0)
== END ==
PROVIDERS: PCP Family Medicine; Referring Provider Specialist; Visit Provider Specialist
DX: N21.0 Calculus in bladder (principal); R31.0 Gross hematuria; R97.20 Elevated prostate specific antigen [PSA]; Z87.448 Personal history of other diseases of urinary system
CPT/HCPCS: 36415; 74018; 82310; 84153; 84154; 84550

== ENCOUNTER → 2024-01-05 12:39 | Outpatient (CLI) | payer MEDICARE, SELFPAY ==
[2024-01-05 15:03] LABS: BUN Creatinine Ratio 21.7 (6-22); Blood Urea Nitrogen 25 mg/dL (9-20); Calcium 10.2 mg/dL (8.4-10.2); Carbon Dioxide 30 mmol/L (22-32); Chloride 101 mmol/L (98-107); Cholesterol 119 mg/dL (140-199); Estimated Glomerular Filt Rate > 60 mL/min (>60); Glucose 102 mg/dL (80-110); HDL Cholesterol 43 mg/dL (40-60); HEMOLYSIS < 15 (0-50); LDL Cholesterol Calculated 60 mg/dL (<100); Potassium 4.5 mmol/L (3.4-5.1); Sodium 139 mmol/L (137-145); Triglycerides 80 mg/dL (35-150)
[2024-01-05 15:30] LABS: Prostate Specific Antigen 4.34 ng/mL (0.10-4.00)
== END ==
PROVIDERS: Urology; PCP Family Medicine; Referring Provider Internal Medicine Cardiovascular Disease; Visit Provider Internal Medicine Cardiovascular Disease
DX: I10 Essential (primary) hypertension (principal); R97.20 Elevated prostate specific antigen [PSA]; E78.5 Hyperlipidemia, unspecified; N40.1 Benign prostatic hyperplasia with lower urinary tract symptoms; N13.8 Other obstructive and reflux uropathy
CPT/HCPCS: 36415; 80048; 80061; 84153

== ENCOUNTER → 2024-02-01 12:21 | Outpatient (CLI) | payer MEDICARE, SELFPAY ==
--- NOTE | 2024-02-01 12:21 | DI.CT.S_ITS ---
PROCEDURE: CT KIDNEY URETER BLADDER (KUB) INDICATIONS: 73 y/o M w/ recently diagnosed 5mm right ureteral stone TECHNIQUE: Axial sections were acquired from the lung bases to the pubic symphysis. Coronal and sagittal reformats were performed. For radiation dose reduction, the following was used: automated exposure control, adjustment of mA and/or kV according to patient size. COMPARISON: [facility], CT, CT KIDNEY URETER BLADDER (KUB), 09/23/2023, 7:46. FINDINGS: Image quality: Diagnostic. Lower Chest: No significant findings. URINARY: Right Kidney: Previously seen stone measuring 3 millimeters in the lower right pole is no longer present. Also the 5 millimeter calculus in the proximal right ureter has passed. Right Ureter: No hydroureter. Left Kidney: No stones or hydronephrosis. Renal pelvic cysts are present. Left Ureter: No hydroureter. Bladder: Normal wall thickness. No stones. ABDOMEN: Liver: No contour-deforming solid mass. Gallbladder: No radiopaque gallstones or wall thickening. Biliary ducts: No biliary dilation. Pancreas: No ductal dilation. Spleen: Size is within normal limits. Adrenal Glands: No adrenal nodules. Stomach and Bowel: Normal colonic caliber, without significant wall thickening. There is again seen numerous colonic diverticuli. Peritoneum: No abnormal intraperitoneal fluid. No free air. Ventral Wall: No hernia. Abdominal Nodes: No enlarged retroperitoneal or mesenteric lymph nodes. Vessels: Aorta and inferior vena cava are normal in size. PELVIS: Pelvic Organs: The prostate is enlarged. Pelvic Nodes: Unremarkable. Miscellaneous: No inguinal hernias are seen. Bones: Unremarkable. There are degenerative changes involving the lumbar spine. IMPRESSION: No obstructing stones or hydronephrosis. Previously seen right hydronephrosis, renal and ureteral calculous has resolved. Dictated by: Cholo Lunsford M.D. on 02/01/2024 at 14:53 Approved by: Cholo Lunsford M.D. on 02/01/2024 at 15:01
== END ==
PROVIDERS: PCP Family Medicine; Referring Provider Urology; Visit Provider Urology
DX: N20.1 Calculus of ureter (principal); N28.1 Cyst of kidney, acquired; K57.90 Diverticulosis of intestine, part unspecified, without perforation or abscess without bleeding; N40.0 Benign prostatic hyperplasia without lower urinary tract symptoms; M47.816 Spondylosis without myelopathy or radiculopathy, lumbar region
CPT/HCPCS: 74176

== ENCOUNTER → 2024-06-23 08:14 | Outpatient (CLI) | payer MEDICARE, SELFPAY ==
[2024-06-23 10:04] LABS: Hematocrit 41.4 % (41-53); Hemoglobin 14.1 g/dL (13.5-17.5); Mean Corpuscular HGB Conc 34.1 % (30-36); Mean Corpuscular Hemoglobin 28.4 PG (26-34); Mean Corpuscular Volume 83.4 fL (80-100); Platelet Count 246 X10^3/uL (150-400); Red Blood Cell Count 4.96 X10^6/uL (4.5-5.9); Red Cell Distribution Width 13.5 % (11.6-14.8); White Blood Cell Count 6.4 X10^3/uL (4.5-11.0)
[2024-06-23 10:09] LABS: Hemoglobin A1C% w Est Avg Glu 5.6 % (4.0-6.0)
[2024-06-23 10:20] LABS: Creatinine Urine Random 121.99 mg/dL
[2024-06-23 10:35] LABS: Alanine Aminotransferase 18 IU/L (<50); Albumin 4.7 g/dL (3.5-5.0); Albumin Globulin Ratio 2.2 (1.0-2.8); Alkaline Phosphatase 62 U/L (38-126); Aspartate Aminotransferase 22 IU/L (17-59); BUN Creatinine Ratio 34.2 (6-22); Bilirubin Total 0.7 mg/dL (0.2-1.3); Blood Urea Nitrogen 38 mg/dL (9-20); Carbon Dioxide 28 mmol/L (22-32); Chloride 104 mmol/L (98-107); Cholesterol 118 mg/dL (140-199); Estimated Glomerular Filt Rate > 60 mL/min (>60); Globulin 2.1 g/dL (1.7-4.1); Glucose 113 mg/dL (80-110); HDL Cholesterol 39 mg/dL (40-60); HEMOLYSIS < 15 (0-50); LDL Cholesterol Calculated 66 mg/dL (<100); Potassium 4.6 mmol/L (3.4-5.1); Sodium 141 mmol/L (137-145); Total Protein 6.8 g/dL (6.3-8.2); Triglycerides 63 mg/dL (35-150)
[2024-06-23 10:58] LABS: Microalbumin Urine Random 40.6 mg/dL (0-1.6)
[2024-06-23 11:19] LABS: Hep C Virus Ab w/Reflex Quant NEGATIVE s/c (NEGATIVE)
== END ==
PROVIDERS: PCP Family Medicine; Referring Provider Family Medicine; Visit Provider Family Medicine
DX: I10 Essential (primary) hypertension (principal); R73.03 Prediabetes; E78.5 Hyperlipidemia, unspecified; Z11.59 Encounter for screening for other viral diseases
CPT/HCPCS: 36415; 80053; 80061; 82043; 82570; 83036; 85027; 86803

== ENCOUNTER → 2024-07-26 10:47 | Outpatient (CLI) | payer MEDICARE, SELFPAY ==
[2024-07-26 13:39] LABS: Prostate Specific Antigen 4.99 ng/mL (0.10-4.00)
== END ==
PROVIDERS: PCP Family Medicine; Referring Provider Urology; Visit Provider Urology
DX: N40.1 Benign prostatic hyperplasia with lower urinary tract symptoms (principal); N13.8 Other obstructive and reflux uropathy
CPT/HCPCS: 36415; 84153

== ENCOUNTER → 2024-11-15 11:33 | Outpatient (CLI) | payer MEDICARE, SELFPAY ==
[2024-11-15 12:46] LABS: Microalbumi Creatinin Ratio Ur 155.0 ug/mg CR (<30)
== END ==
PROVIDERS: PCP Family Medicine; Referring Provider Family Medicine; Visit Provider Family Medicine
DX: Q61.3 Polycystic kidney, unspecified (principal); I10 Essential (primary) hypertension; R80.9 Proteinuria, unspecified
CPT/HCPCS: 82043; 82570

== ENCOUNTER → 2025-01-04 11:49 | Outpatient (CLI) | payer MEDICARE, SELFPAY ==
[2025-01-04 12:46] LABS: Hematocrit 44.5 % (41-53); Hemoglobin 15.2 g/dL (13.5-17.5); Mean Corpuscular HGB Conc 34.2 % (30-36); Mean Corpuscular Hemoglobin 28.1 PG (26-34); Mean Corpuscular Volume 82.0 fL (80-100); Platelet Count 239 X10^3/uL (150-400)
[2025-01-04 13:15] LABS: Blood Urea Nitrogen 27 mg/dL (9-20); Calcium 10.2 mg/dL (8.4-10.2); Carbon Dioxide 29 mmol/L (22-32); Chloride 101 mmol/L (98-107); Estimated Glomerular Filt Rate > 60 mL/min (>60); Glucose 131 mg/dL (70-99); HEMOLYSIS < 15 (0-50); Potassium 5.5 mmol/L (3.4-5.1); Sodium 138 mmol/L (137-145)
[2025-01-04 13:46] LABS: Prostate Specific Antigen 4.17 ng/mL (0.10-4.00)
== END ==
PROVIDERS: Urology; PCP Family Medicine; Referring Provider Physician Assistant; Visit Provider Physician Assistant
DX: E78.5 Hyperlipidemia, unspecified (principal); R97.20 Elevated prostate specific antigen [PSA]; I10 Essential (primary) hypertension
CPT/HCPCS: 36415; 80048; 84153; 85027

== ENCOUNTER → 2025-01-16 10:31 | Outpatient (CLI) | payer MEDICARE, SELFPAY ==
[2025-01-16 11:00] LABS: Hemoglobin A1C% w Est Avg Glu 6.5 % (4.0-6.0)
[2025-01-16 11:36] LABS: Blood Urea Nitrogen 24 mg/dL (9-20); Calcium 9.7 mg/dL (8.4-10.2); Carbon Dioxide 25 mmol/L (22-32); Chloride 102 mmol/L (98-107); Estimated Glomerular Filt Rate > 60 mL/min (>60); Glucose 155 mg/dL (70-99); HEMOLYSIS < 15 (0-50); Potassium 4.3 mmol/L (3.4-5.1); Sodium 140 mmol/L (137-145)
== END ==
PROVIDERS: PCP Family Medicine; Referring Provider Internal Medicine Cardiovascular Disease; Visit Provider Internal Medicine Cardiovascular Disease
DX: E87.5 Hyperkalemia (principal); R73.03 Prediabetes
CPT/HCPCS: 36415; 80048; 83036